=== PATIENT | female | born 1945 | race Caucasian/White ===

== ENCOUNTER 2018-02-07 06:30 | Inpatient (IN) | payer BC ==
[~2018-02-07] VITALS: Ht 157.5 cm; Wt 104.5 kg
[2018-02-07] MEDS ORDERED: BENTYL PO (07:01)
[2018-02-07] MEDS ORDERED: SERT50TA PO (07:01)
[2018-02-07] MEDS ORDERED: BUDESONIDE PO (07:01)
[2018-02-07] MEDS ORDERED: TRIA1CAP PO (07:01)
[2018-02-07] MEDS ORDERED: ASPI-515 PO (07:01)
[2018-02-07] MEDS ORDERED: SIMV20TA3 PO (07:01)
[2018-02-07] MEDS ORDERED: [UNRECOGNIZED DRUG - REMARK] (07:01)
[2018-02-07] MEDS ORDERED: LEVO25TA4 PO (07:01)
[2018-02-07] MEDS ORDERED: MV,1TABL3 PO (07:02)
[2018-02-07] MEDS ORDERED: FLAX1CAP PO (07:02)
[2018-02-07] MEDS ORDERED: GLUCOSAMINE PO (07:02)
[2018-02-07] MEDS ORDERED: CALCIUM (07:02)
[2018-02-07] MEDS ORDERED: FAMOTIDINE 20 MG/2 ML ONE (07:24)
[2018-02-07] MEDS ORDERED: ONDANSETRON 2MG/ML, 2ML ONE (07:24)
[2018-02-07] MEDS ORDERED: FENTANYL PF 100 MCG/2ML ONE ×2 (07:25→09:38)
[2018-02-07] MEDS ORDERED: ONDANSETRON 2MG/ML, 2ML IVPush ONE (07:30)
[2018-02-07] MEDS ORDERED: FAMOTIDINE 20 MG/2 ML IVP ONE (07:30)
[2018-02-07] MEDS ORDERED: SODIUM CHLORIDE 0.9% 1,000ML IVBOLUS ONE ×2 (07:30→09:30)
[2018-02-07] MEDS ORDERED: SODIUM CHLORIDE FLUSH 10ML SYR IVF ONE (07:30)
[2018-02-07] MEDS ORDERED: FENTANYL PF 100 MCG/2ML IV ONE ×2 (07:30→10:00)
[2018-02-07 07:45] LABS: BASOPHILS # (AUTO) 0.01 x10^3/uL (0-0.1); BASOPHILS % (AUTO) 0 % (0-1); EOSINOPHILS # (AUTO) 0.15 x10^3/uL (0-0.4); EOSINOPHILS % (AUTO) 1 % (1-7); LYMPHOCYTES # (AUTO) 1.67 x10^3/uL (1-3.4); LYMPHOCYTES % (AUTO) 11 % (22-44); MD NO; MEAN CORPUSCULAR HEMOGLOBIN 29.3 pg (27.0-34.8); MEAN CORPUSCULAR HGB CONC 34.4 g/dL (32.4-35.8); MEAN CORPUSCULAR VOLUME 85.3 fL (80-100); MONOCYTES % (AUTO) 4 % (2-9); NEUTROPHILS # (AUTO) 12.25 x10^3/uL (1.8-6.8); NEUTROPHILS % (AUTO) 84 % (42-75); PLATELET COUNT 185 x10^3/uL (130-400); RED BLOOD COUNT 4.53 x10^6/uL (3.82-5.3); RED CELL DISTRIBUTION WIDTH 14.6 % (9.6-15.2)
[2018-02-07 07:50] LABS: ALANINE AMINOTRANSFERASE 38 U/L (12-78); ALBUMIN 3.5 g/dL (3.4-5.0); ANION GAP 11 mmol/L (5-15); CALCIUM 9.7 mg/dL (8.5-10.1); CHLORIDE 101 mmol/L (98-107); CREATININE 0.76 mg/dL (0.55-1.02)
[2018-02-07 07:52] LABS: ALKALINE PHOSPHATASE 70 U/L (45-117); BILIRUBIN,TOTAL 0.4 mg/dL (0.2-1.0); TOTAL PROTEIN 6.9 g/dL (6.4-8.2)
[2018-02-07 08:17] LABS: MICROSCOPIC AUTO
[2018-02-07 08:21] LABS: CULTURE INDICATED? NO
[2018-02-07] MEDS ORDERED: OMNIPAQUE 350 MG/ML, 100ML BOTTLE ONE (08:28)
[2018-02-07] MEDS ORDERED: CEFTRIAXONE PMX 1GM/50ML 50 ML IV ONE (09:30)
[2018-02-07] MEDS ORDERED: CEFTRIAXONE PMX 1GM/50ML 50 ML ONE ×2 (09:39→09:42)
[2018-02-07] MEDS ORDERED: METRONIDAZOLE PMX 500MG/100ML 100 ML IV SCH (10:00)
[2018-02-07] MEDS ORDERED: NS + 20MEQ KCL 1,000 ML IV SCH (10:14)
[2018-02-07] MEDS ORDERED: POTASSIUM CHLORIDE 20 MEQ TAB.ER.PRT ONE (10:21)
[2018-02-07] MEDS ORDERED: ONDANSETRON 2MG/ML, 2ML IVPush PRN (10:30)
[2018-02-07] MEDS ORDERED: POTASSIUM CHLORIDE 20 MEQ TAB.ER.PRT PO ONE ×2 (10:30→18:30)
[2018-02-07] MEDS ORDERED: GUAIFENESIN/DM 200-20MG, 10ML UDC PO PRN (10:30)
[2018-02-07] MEDS ORDERED: ONDANSETRON ODT 4 MG PO PRN (10:30)
[2018-02-07] MEDS ORDERED: POLYETHYLENE GLYCOL 17 GM PACKET PO PRN (10:30)
[2018-02-07] MEDS ORDERED: methylPREDNISolone SOD SUCC 125 MG/2 ML IVPush SCH (10:30)
[2018-02-07 10:37] LABS: BASOPHILS # (AUTO) 0.02 x10^3/uL (0-0.1); BASOPHILS % (AUTO) 0 % (0-1); EOSINOPHILS # (AUTO) 0.11 x10^3/uL (0-0.4); EOSINOPHILS % (AUTO) 1 % (1-7); LYMPHOCYTES # (AUTO) 1.45 x10^3/uL (1-3.4); LYMPHOCYTES % (AUTO) 11 % (22-44); MD NO; MEAN CORPUSCULAR HEMOGLOBIN 29.4 pg (27.0-34.8); MEAN CORPUSCULAR HGB CONC 34.3 g/dL (32.4-35.8); MEAN CORPUSCULAR VOLUME 85.8 fL (80-100); MONOCYTES # (AUTO) 0.67 x10^3/uL (0.2-0.8); MONOCYTES % (AUTO) 5 % (2-9); NEUTROPHILS % (AUTO) 84 % (42-75); PLATELET COUNT 169 x10^3/uL (130-400); RED BLOOD COUNT 4.19 x10^6/uL (3.82-5.3); RED CELL DISTRIBUTION WIDTH 14.7 % (9.6-15.2)
[2018-02-07] MEDS ORDERED: METRONIDAZOLE PMX 500MG/100ML 100 ML ONE (10:41)
[2018-02-07 10:44] LABS: INTERNATIONAL NORMALIZED RATIO 0.99 (0.93-1.1); PROTHROMBIN TIME 10.3 Seconds (9.6-11.5)
[2018-02-07 10:51] LABS: FREE T4 (FREE THYROXINE) 0.96 ng/dL (0.76-1.46)
[2018-02-07 11:47] VITALS: BP 114/70
[2018-02-07 11:50] VITALS: BP 114/70
[2018-02-07 12:47] VITALS: BP 97/60
[2018-02-07] MEDS: HYDROcodone/APAP 5/325 TABLET PO PRN ×2 (12:58→20:05)
[2018-02-07] MEDS ORDERED: HYDROmorphone 1 MG/ML, 1ML IV PRN (13:00)
[2018-02-07] MEDS: PANTOPRAZOLE 40 MG IV IVPush SCH (13:16)
[2018-02-07] MEDS ORDERED: MORPHINE SULFATE 4 MG/ML, 1ML IVPush PRN (15:30)
[2018-02-07] MEDS ORDERED: DIPHENHYDRAMINE 50 MG/ML, 1ML IVPush PRN (15:30)
[2018-02-07 18:37] VITALS: BP 121/70
[2018-02-07] MEDS: NS + 20MEQ KCL 1,000 ML IV SCH (20:30)
[2018-02-07] MEDS: SIMVASTATIN 20 MG TABLET PO SCH (20:48)
[2018-02-07] MEDS: ZOLPIDEM 5MG TABLET PO PRN (20:48)
[2018-02-08] LABS: CULTURE INDICATED? YES; MICROSCOPIC INDICATED
[2018-02-08] MEDS: PANTOPRAZOLE 40 MG IV IVPush SCH ×2 (01:49→13:46)
[2018-02-08 03:00] VITALS: BP 123/74
[2018-02-08] MEDS: NS + 20MEQ KCL 1,000 ML IV SCH ×2 (04:18→12:14)
[2018-02-08] MEDS: HYDROcodone/APAP 5/325 TABLET PO PRN ×2 (05:00→18:06)
[2018-02-08 05:49] LABS: ANION GAP 8 mmol/L (5-15); CHLORIDE 112 mmol/L (98-107)
[2018-02-08 06:07] LABS: ALANINE AMINOTRANSFERASE 26 U/L (12-78); ALKALINE PHOSPHATASE 58 U/L (45-117); BILIRUBIN,TOTAL 0.5 mg/dL (0.2-1.0); CALCIUM 8.5 mg/dL (8.5-10.1); CHOL/HDL RATIO 2.4; CHOLESTEROL, TOTAL 156 mg/dL (140-239); HDL CHOL % 42 % (28-40); HDL CHOLESTEROL (DIRECT) 65 mg/dL (40-60); LDL CHOLESTEROL,CALCULATED 63 mg/dL (54-169); TRIGLYCERIDES 140 mg/dL (50-200); VLDL CHOLESTEROL 28 mg/dL (0-25)
[2018-02-08 07:19] VITALS: BP 132/83
[2018-02-08] MEDS ORDERED: PANTOPRAZOLE 40 MG IV IVPush SCH (07:30)
[2018-02-08] MEDS ORDERED: SODIUM PHOSPHATE 4 MEQ/ML IV SCH (08:00)
[2018-02-08] MEDS ORDERED: SODIUM PHOSPHATE 30 MMOL in SODIUM CHLORIDE 0.9% 500 ML IV ONE (08:00)
[2018-02-08] MEDS: SERTRALINE 50MG TABLET PO SCH (08:27)
[2018-02-08] MEDS: SENNA/DOCUSATE TABLET PO SCH (08:28)
[2018-02-08] MEDS ORDERED: CEFTRIAXONE PMX 2GM/50ML 50 ML IV SCH (10:00)
[2018-02-08] MEDS ORDERED: NS + 20MEQ KCL 1,000 ML IV SCH ×2 (10:14→20:30)
[2018-02-08] MEDS ORDERED: ALBUTEROL SULFATE 2.5 MG/3 ML NPPB PRN (13:30)
[2018-02-08 13:54] VITALS: BP 147/87
[2018-02-08] MEDS ORDERED: FUROSEMIDE 20 MG/2 ML ONE (15:19)
[2018-02-08] MEDS ORDERED: FUROSEMIDE 20 MG/2 ML IV ONE ×2 (15:30→16:30)
[2018-02-08 16:37] LABS: OCCULT BLOOD POSITIVE (NEGATIVE)
[2018-02-08 17:15] LABS: BASOPHILS # (AUTO) 0.03 x10^3/uL (0-0.1); BASOPHILS % (AUTO) 0 % (0-1); EOSINOPHILS # (AUTO) 0.09 x10^3/uL (0-0.4); EOSINOPHILS % (AUTO) 1 % (1-7); LYMPHOCYTES # (AUTO) 1.39 x10^3/uL (1-3.4); LYMPHOCYTES % (AUTO) 10 % (22-44); MD NO; MEAN CORPUSCULAR HEMOGLOBIN 29.7 pg (27.0-34.8); MEAN CORPUSCULAR HGB CONC 34.1 g/dL (32.4-35.8); MEAN CORPUSCULAR VOLUME 87.2 fL (80-100); MEAN PLATELET VOLUME 8.1 fL (7.4-10.4); MONOCYTES # (AUTO) 0.58 x10^3/uL (0.2-0.8); MONOCYTES % (AUTO) 4 % (2-9); NEUTROPHILS # (AUTO) 11.78 x10^3/uL (1.8-6.8); NEUTROPHILS % (AUTO) 85 % (42-75); PLATELET COUNT 161 x10^3/uL (130-400); RED BLOOD COUNT 4.21 x10^6/uL (3.82-5.3)
[2018-02-08] MEDS: ZOLPIDEM 5MG TABLET PO PRN (20:30)
[2018-02-08] MEDS: SIMVASTATIN 20 MG TABLET PO SCH (20:30)
[2018-02-08 23:25] VITALS: BP 117/66
[2018-02-09] MEDS: PANTOPRAZOLE 40 MG IV IVPush SCH ×2 (01:30→13:37)
[2018-02-09] MEDS: HYDROcodone/APAP 5/325 TABLET PO PRN ×2 (01:56→20:08)
[2018-02-09 03:15] VITALS: BP 120/76
[2018-02-09 04:48] LABS: BASOPHILS # (AUTO) 0.01 x10^3/uL (0-0.1); BASOPHILS % (AUTO) 0 % (0-1); EOSINOPHILS # (AUTO) 0.14 x10^3/uL (0-0.4); EOSINOPHILS % (AUTO) 1 % (1-7); LYMPHOCYTES # (AUTO) 1.22 x10^3/uL (1-3.4); LYMPHOCYTES % (AUTO) 12 % (22-44); MD NO; MEAN CORPUSCULAR HEMOGLOBIN 29.3 pg (27.0-34.8); MEAN CORPUSCULAR HGB CONC 33.7 g/dL (32.4-35.8); MEAN CORPUSCULAR VOLUME 86.9 fL (80-100); MEAN PLATELET VOLUME 8.1 fL (7.4-10.4); MONOCYTES % (AUTO) 2 % (2-9); NEUTROPHILS # (AUTO) 8.77 x10^3/uL (1.8-6.8); NEUTROPHILS % (AUTO) 85 % (42-75); PLATELET COUNT 155 x10^3/uL (130-400); RED CELL DISTRIBUTION WIDTH 14.9 % (9.6-15.2)
[2018-02-09 04:50] LABS: CALCIUM 8.5 mg/dL (8.5-10.1); CHLORIDE 109 mmol/L (98-107)
[2018-02-09 04:56] LABS: ALANINE AMINOTRANSFERASE 24 U/L (12-78); ALBUMIN 2.9 g/dL (3.4-5.0); ALKALINE PHOSPHATASE 54 U/L (45-117); ANION GAP 7 mmol/L (5-15); BILIRUBIN,TOTAL 0.6 mg/dL (0.2-1.0); CREATININE 0.59 mg/dL (0.55-1.02)
[2018-02-09] MEDS: NS + 20MEQ KCL 1,000 ML IV SCH ×2 (06:14→21:55)
[2018-02-09] MEDS ORDERED: POTASSIUM CHLORIDE 20 MEQ TAB.ER.PRT PO ONE ×2 (07:30→11:30)
[2018-02-09 08:05] VITALS: BP 170/70
[2018-02-09] MEDS: SERTRALINE 50MG TABLET PO SCH (08:53)
[2018-02-09] MEDS: SENNA/DOCUSATE TABLET PO SCH (08:54)
[2018-02-09 13:55] VITALS: BP 147/82
[2018-02-09] MEDS ORDERED: SODIUM CHLORIDE NASAL SPRAY 45ML BOTTLE NAS PRN (17:00)
[2018-02-09 19:42] VITALS: BP 160/82
[2018-02-09] MEDS: SIMVASTATIN 20 MG TABLET PO SCH (20:09)
[2018-02-09] MEDS: ZOLPIDEM 5MG TABLET PO PRN (21:55)
[2018-02-10] MEDS: PANTOPRAZOLE 40 MG IV IVPush SCH ×2 (01:14→12:52)
[2018-02-10 03:04] VITALS: BP 156/83
[2018-02-10 07:40] VITALS: BP 167/103
[2018-02-10] MEDS: SENNA/DOCUSATE TABLET PO SCH (07:59)
[2018-02-10] MEDS: LABETALOL 5MG/ML, 20ML IVPush PRN (08:35)
[2018-02-10] MEDS: SERTRALINE 50MG TABLET PO SCH (08:36)
[2018-02-10 08:39] LABS: BASOPHILS # (AUTO) 0.03 x10^3/uL (0-0.1); BASOPHILS % (AUTO) 0 % (0-1); EOSINOPHILS # (AUTO) 0.21 x10^3/uL (0-0.4); EOSINOPHILS % (AUTO) 3 % (1-7); LYMPHOCYTES # (AUTO) 1.48 x10^3/uL (1-3.4); LYMPHOCYTES % (AUTO) 18 % (22-44); MD NO; MEAN CORPUSCULAR HGB CONC 33.6 g/dL (32.4-35.8); MEAN CORPUSCULAR VOLUME 86.4 fL (80-100); MEAN PLATELET VOLUME 7.6 fL (7.4-10.4); MONOCYTES # (AUTO) 0.45 x10^3/uL (0.2-0.8); MONOCYTES % (AUTO) 6 % (2-9); NEUTROPHILS # (AUTO) 5.89 x10^3/uL (1.8-6.8); NEUTROPHILS % (AUTO) 73 % (42-75); PLATELET COUNT 164 x10^3/uL (130-400); RED CELL DISTRIBUTION WIDTH 14.7 % (9.6-15.2)
[2018-02-10 08:52] LABS: ALBUMIN 2.8 g/dL (3.4-5.0); ANION GAP 8 mmol/L (5-15); CALCIUM 8.7 mg/dL (8.5-10.1); CHLORIDE 109 mmol/L (98-107); CREATININE 0.62 mg/dL (0.55-1.02)
[2018-02-10] MEDS: NS + 20MEQ KCL 1,000 ML IV SCH (09:40)
[2018-02-10 10:10] VITALS: BP 137/78
[2018-02-10 12:40] VITALS: BP 171/77
[2018-02-10] MEDS: HYDROcodone/APAP 5/325 TABLET PO PRN ×2 (12:52→19:06)
[2018-02-10] MEDS: DICYCLOMINE 10 MG CAPSULE PO SCH ×2 (16:11→20:39)
[2018-02-10 19:26] VITALS: BP 145/80
[2018-02-10] MEDS: SIMVASTATIN 20 MG TABLET PO SCH (20:39)
[2018-02-11] MEDS: LABETALOL 5MG/ML, 20ML IVPush PRN (01:12)
[2018-02-11] MEDS: PANTOPRAZOLE 40 MG IV IVPush SCH ×2 (01:12→12:06)
[2018-02-11 01:25] VITALS: BP 170/82
[2018-02-11 01:32] VITALS: BP 150/100
[2018-02-11 05:39] LABS: BASOPHILS # (AUTO) 0.02 x10^3/uL (0-0.1); BASOPHILS % (AUTO) 0 % (0-1); EOSINOPHILS % (AUTO) 3 % (1-7); LYMPHOCYTES # (AUTO) 1.23 x10^3/uL (1-3.4); LYMPHOCYTES % (AUTO) 19 % (22-44); MD NO; MEAN CORPUSCULAR HEMOGLOBIN 29.2 pg (27.0-34.8); MEAN CORPUSCULAR HGB CONC 33.7 g/dL (32.4-35.8); MEAN CORPUSCULAR VOLUME 86.6 fL (80-100); MEAN PLATELET VOLUME 7.8 fL (7.4-10.4); MONOCYTES # (AUTO) 0.37 x10^3/uL (0.2-0.8); MONOCYTES % (AUTO) 6 % (2-9); NEUTROPHILS # (AUTO) 4.81 x10^3/uL (1.8-6.8); NEUTROPHILS % (AUTO) 73 % (42-75); PLATELET COUNT 172 x10^3/uL (130-400); RED BLOOD COUNT 3.89 x10^6/uL (3.82-5.3); RED CELL DISTRIBUTION WIDTH 14.6 % (9.6-15.2)
[2018-02-11] MEDS: DICYCLOMINE 10 MG CAPSULE PO SCH ×2 (05:39→12:06)
[2018-02-11 05:40] LABS: ALBUMIN 2.9 g/dL (3.4-5.0); ANION GAP 8 mmol/L (5-15); CALCIUM 8.9 mg/dL (8.5-10.1); CHLORIDE 109 mmol/L (98-107)
[2018-02-11 05:43] LABS: CREATININE 0.77 mg/dL (0.55-1.02)
[2018-02-11 08:36] VITALS: BP 128/82
[2018-02-11] MEDS: SERTRALINE 50MG TABLET PO SCH (08:37)
[2018-02-11] MEDS: SENNA/DOCUSATE TABLET PO SCH (08:37)
[2018-02-11] MEDS ORDERED: TRIAMTERENE-HCTZ 37.5/25 MG TABLET PO SCH (09:00)
[2018-02-11] MEDS ORDERED: LEVOTHYROXINE 25 MCG TABLET PO SCH (09:00)
[2018-02-11 13:55] VITALS: BP 116/75
[2018-02-11] MEDS: HYDROcodone/APAP 5/325 TABLET PO PRN (14:40)
[2018-02-11] MEDS ORDERED: ONDA4TAB7 PO (14:55)
[2018-02-11] MEDS ORDERED: DICY10CA3 PO (15:00)
== END 2018-02-11 13:30 | disposition home or self-care (01) | DRG 394 ==
LOC: ED 08:43 → EDIP 09:19 → 4WST 11:27
PROVIDERS: ADMIT Family Medicine; ATTEND Family Medicine
DX: K55.9 Vascular disorder of intestine, unspecified (principal); E87.2 Acidosis; K50.90 Crohn's disease, unspecified, without complications; K86.89 Other specified diseases of pancreas; M48.54XA Collapsed vertebra, not elsewhere classified, thoracic region, initial encounter for fracture; E03.9 Hypothyroidism, unspecified; E78.5 Hyperlipidemia, unspecified; E87.6 Hypokalemia; F32.9 Major depressive disorder, single episode, unspecified; F41.9 Anxiety disorder, unspecified; F42.9 Obsessive-compulsive disorder, unspecified; I10 Essential (primary) hypertension; K21.9 Gastro-esophageal reflux disease without esophagitis; K76.0 Fatty (change of) liver, not elsewhere classified; Z80.52 Family history of malignant neoplasm of bladder; Z82.49 Family history of ischemic heart disease and other diseases of the circulatory system; Z83.3 Family history of diabetes mellitus; Z86.73 Personal history of transient ischemic attack (TIA), and cerebral infarction without residual deficits; Z88.5 Allergy status to narcotic agent
CPT/HCPCS: 36415; 71045; 74018; 74177; 80048; 80053; 80061; 81001; 82040; 82272; 83605; 83690; 83735; 84100; 84439; 85014; 85018; 85025; 85610; 87040; 87086; 93005; 93306; 96361; 96374; 96375; 96376; J0696; J2405; J3010; J3480; Q0162; Q9967; C9113; J1940; J2930; J7030; J7040; S0028